=== PATIENT | female | born 1965 | race Caucasian/White ===

== ENCOUNTER 2016-11-11 18:13 | Emergency (ER) | payer MEDICAID ==
--- NOTE | 2016-11-11 18:21 | ER Document Report ---
ED Medical Screen (RME) - General Stated Complaint: LEFT LEG PAIN Mode of Arrival: Wheelchair Information source: Patient Notes: c/o of left buttock pain that radiates down to her left leg that started 2 weeks ago. It improved but then has returned and worsened today. She has is on 600 mg of gabapentin TID and has tried ibuprofen which has not provided relief. Endorses numbness in left foot but denies any unilateral weakness, bowel/ bladder incontinence, saddle paresthesias. I have greeted and performed a rapid initial assessment of this patient. A comprehensive ED assessment and evaluation of the patient, analysis of test results and completion of the medical decision making process will be conducted by additional ED providers. TRAVEL OUTSIDE OF THE [place] IN LAST 30 DAYS: No COUNTRY TRAVELED TO/FROM: [facility] - Related Data Allergies/Adverse Reactions: hydrocodone bitartrate [From Vicodin] Allergy (Verified 03/06/16 11:52) morphine [Morphine] Allergy (Verified 03/06/16 11:52) Past Medical History - Past Medical History Cardiac Medical History: Reports: Hx Hypertension Renal/ Medical History: Reports: Hx Kidney Stones GI Medical History: Reports: Hx Crohn's Disease, Hx Hepatitis Musculoskeltal Medical History: Reports Hx Arthritis Psychiatric Medical History: Reports: Hx Bipolar Disorder - Ptsd, Hx Depression Infectious Medical History: Reports: Hx Hepatitis Past Surgical History: Reports: Hx Orthopedic Surgery - rotator cuff, HIP SURGERY, Hx Tubal Ligation - Immunizations Hx Diphtheria, Pertussis, Tetanus Vaccination: Yes Physical Exam - Vital signs Vitals: Temp Pulse Resp BP Pulse Ox 98.0 F 81 16 139/83 H 97 11/11/16 18:16 11/11/16 18:16 11/11/16 18:16 11/11/16 18:16 11/11/16 18:16 Course - Vital Signs Vital signs: Temp Pulse Resp BP Pulse Ox 98.0 F 81 16 139/83 H 97 11/11/16 18:16 11/11/16 18:16 11/11/16 18:16 11/11/16 18:16 11/11/16 18:16
[2016-11-11] MEDS ORDERED: PREDNISONE 20 MG TABLET PO ONE (20:40)
[2016-11-11] MEDS ORDERED: CARISOPRODOL 350 MG TABLET PO ONE (20:40)
--- NOTE | 2016-11-11 20:41 | ER Document Report ---
ED General - General Mode of Arrival: Wheelchair Information source: Patient TRAVEL OUTSIDE OF THE [place] IN LAST 30 DAYS: No COUNTRY TRAVELED TO/FROM: [facility] - [facility] Patient complains to provider of: Lower left back and leg pain Onset: Other - 2 weeks ago Associated symptoms: Other - see above <HAWA VIEYAR - Last Filed: 11/11/16 21:44> <GURINDER SIERRA - Last Filed: 11/11/16 22:45> - General Chief Complaint: Back Pain Stated Complaint: LEFT LEG PAIN Notes: 50 year old female with history of degenerative disc disease presents to the ED complaining of lower left back and posterior leg pain that started 2 weeks ago. Patient reports the pain eased off for a few days and then came back in the past few days. Patient reports difficulty walking or bearing weight on her left leg. Patient denies any dysuria. Patient is currently on ibuprofen and Gabapentin. (HAWA VIEYRA) - Related Data Allergies/Adverse Reactions: hydrocodone bitartrate [From Vicodin] Allergy (Verified 11/11/16 18:18) morphine [Morphine] Allergy (Verified 11/11/16 18:18) Past Medical History - General Information source: Patient - Social History Smoking Status: Current Every Day Smoker Chew tobacco use (# tins/day): No Frequency of alcohol use: None Drug Abuse: None Family History: Reviewed & Not Pertinent Patient has suicidal ideation: No Patient has homicidal ideation: No - Past Medical History Cardiac Medical History: Reports: Hx Hypertension Renal/ Medical History: Reports: Hx Kidney Stones. Denies: Hx Peritoneal Dialysis GI Medical History: Reports: Hx Crohn's Disease, Hx Hepatitis Musculoskeltal Medical History: Reports Hx Arthritis, Reports Other - Degenerative Disc Disease Psychiatric Medical History: Reports: Hx Bipolar Disorder - Ptsd, Hx Depression Infectious Medical History: Reports: Hx Hepatitis Past Surgical History: Reports: Hx Orthopedic Surgery - rotator cuff, HIP SURGERY, Hx Tubal Ligation - Immunizations Hx Diphtheria, Pertussis, Tetanus Vaccination: Yes <HAWA VIEYRA - Last Filed: 11/11/16 21:44> Review of Systems - Review of Systems Constitutional: No symptoms reported EENT: No symptoms reported Cardiovascular: No symptoms reported Respiratory: No symptoms reported Gastrointestinal: No symptoms reported Genitourinary: No symptoms reported. denies: Dysuria Female Genitourinary: No symptoms reported Musculoskeletal: See HPI, Back pain - lower left back, Other - posterior left leg pain Skin: No symptoms reported Hematologic/Lymphatic: No symptoms reported Neurological/Psychological: No symptoms reported -: Yes All other systems reviewed and negative <HAWA VIEYRA - Last Filed: 11/11/16 21:44> Physical Exam - General General appearance: Alert In distress: None - HEENT Head: Normocephalic, Atraumatic Eyes: Normal Extraocular movements intact: Yes Pupils: PERRL - Respiratory Respiratory status: No respiratory distress Breath sounds: Normal - Cardiovascular Rhythm: Regular Heart sounds: Normal auscultation - Abdominal Inspection: Normal - Back Back: Normal - Extremities General upper extremity: Normal inspection, Normal ROM General lower extremity: Normal inspection, Tender - tenderness to palpation over the left SI joint and buttock., Normal ROM, Normal strength - Neurological Neuro grossly intact: Yes Cognition: Normal Orientation: AAOx4 [place] Coma Scale Eye Opening: Spontaneous [place] Coma Scale Verbal: Oriented Marlin Coma Scale Motor: Obeys Commands Marlin Coma Scale Total: 15 Speech: Normal Motor strength normal: LLE, RLE Additional motor exam normals: Other - positive left straight leg raise Sensory: Normal - Psychological Associated symptoms: Normal affect, Normal mood - Skin Skin Temperature: Warm Skin Moisture: Dry Skin Color: Normal <HAWA VIEYRA - Last Filed: 11/11/16 21:44> Course <HAWA VIEYRA - Last Filed: 11/11/16 21:44> - Diagnostic Test Radiology reviewed: Reports reviewed <GURINDER SIERRA - Last Filed: 11/11/16 22:45> - Re-evaluation Re-evalutation: 11/11/16 Patient with no acute findings on x-ray. Neurologically intact. Symptoms consistent with sciatica. Patient will be discharged home with pain medication and prednisone. Understands agrees with plan. Stable for discharge. Return if any worsening or concerning symptoms. No evidence for intraspinal pathology at this time. Follow-up with PMD. (GURINDER SIERRA) - Vital Signs Vital signs: Temp Pulse Resp BP Pulse Ox 98.0 F 81 16 139/83 H 97 11/11/16 18:16 11/11/16 18:16 11/11/16 18:16 11/11/16 18:16 11/11/16 18:16 Discharge <HAWA VIEYRA - Last Filed: 11/11/16 21:44> <GURINDER SIERRA - Last Filed: 11/11/16 22:45> - Discharge Clinical Impression: Sciatica Qualifiers: Laterality: left Qualified Code(s): M54.32 - Sciatica, left side Condition: Stable Disposition: HOME, SELF-CARE Instructions: Low Back Pain ([facility]), Sciatica ([facility]), Family Physicians / Practices Prescriptions: Oxycodone HCl/Acetaminophen [Percocet 5-325 mg Tablet] 1 - 2 tab PO Q4H PRN #20 tablet PRN Reason: Prednisone 40 mg PO DAILY #6 tablet Scribe Attestation: 11/11/16 22:45 I personally performed the services described in the documentation, reviewed and edited the documentation which was dictated to the scribe in my presence, and it accurately records my words and actions. (GURINDER SIERRA) Scribe Documentation - Scribe Written by Nia:: Nia Plummer, 11/11/2016, 2116 acting as scribe for :: Amos <HAWA VIEYRA - Last Filed: 11/11/16 21:44>
[2016-11-11] MEDS ORDERED: OXYCODONE-ACETAMINOPHEN 5-325 MG TABLET PO ONE (22:00)
[2016-11-11 23:52] VITALS: BP 129/74
== END 2016-11-11 22:09 | disposition home or self-care (01) ==
LOC: ER 18:13
DX: M54.42 Lumbago with sciatica, left side (principal); I10 Essential (primary) hypertension; F17.200 Nicotine dependence, unspecified, uncomplicated; Z79.899 Other long term (current) drug therapy; Z79.1 Long term (current) use of non-steroidal anti-inflammatories (NSAID); Z88.5 Allergy status to narcotic agent
CPT/HCPCS: 99283; 72110; J3490; J7512

== ENCOUNTER → 2016-12-28 | Outpatient (CLI) | payer MEDICAID | LOC: WI 11:03 | PROVIDERS: ATTEND Family Medicine | DX: Z12.31 Encounter for screening mammogram for malignant neoplasm of breast (principal); N63 Unspecified lump in breast | CPT/HCPCS: 77067; G0202 ==

== ENCOUNTER 2017-02-02 10:53 | Emergency (ER) | payer MEDICAID ==
--- NOTE | 2017-02-02 11:10 | ER Document Report ---
ED Medical Screen (RME) - General Chief Complaint: High Blood Pressure Stated Complaint: BLOOD PRESSURE ISSUES Time Seen by Provider: 02/02/17 11:07 Notes: Patient says that she has been experiencing dizziness over the past week. It is worse when she stands up. She has hypertension and it has caused her to have episodes like this in the past. She has been out of her blood pressure medicines for several days and does not have an appointment see her primary care provider until Tuesday. Patient says that she is seeing spots in front of both eyes and also experiencing a generalized headache. Has not passed out and has no neurologic symptoms or deficits. Has not been ill this past week or so. Denies any fevers. Denies abdominal pains, chest pains, or difficulty breathing or shortness of breath. Denies any history of any heart disease. Not diabetic. PMH: Bipolar disorder, depression, PTSD, hypertension, ulcers. Patient volunteers that she did some cocaine last night. TRAVEL OUTSIDE OF THE [place] IN LAST 30 DAYS: No COUNTRY TRAVELED TO/FROM: [facility] - Related Data Allergies/Adverse Reactions: hydrocodone bitartrate [From Vicodin] Allergy (Verified 02/02/17 10:56) morphine [Morphine] Allergy (Verified 02/02/17 10:56) Past Medical History - Past Medical History Cardiac Medical History: Reports: Hx Hypertension Renal/ Medical History: Reports: Hx Kidney Stones. Denies: Hx Peritoneal Dialysis GI Medical History: Reports: Hx Crohn's Disease, Hx Hepatitis Musculoskeltal Medical History: Reports Hx Arthritis Psychiatric Medical History: Reports: Hx Bipolar Disorder - Ptsd, Hx Depression Infectious Medical History: Reports: Hx Hepatitis Past Surgical History: Reports: Hx Orthopedic Surgery - rotator cuff, HIP SURGERY, Hx Tubal Ligation - Immunizations Hx Diphtheria, Pertussis, Tetanus Vaccination: Yes Physical Exam - Vital signs Vitals: Temp Pulse Resp BP Pulse Ox 98.1 F 78 16 178/90 H 96 02/02/17 10:57 02/02/17 10:57 02/02/17 10:57 02/02/17 10:57 02/02/17 10:57 Course - Vital Signs Vital signs: Temp Pulse Resp BP Pulse Ox 98.1 F 78 16 178/90 H 96 02/02/17 10:57 02/02/17 10:57 02/02/17 10:57 02/02/17 10:57 02/02/17 10:57
--- NOTE | 2017-02-02 12:00 | ER Document Report ---
ED Blood Pressure Problem - General Mode of Arrival: Ambulatory Information source: Patient TRAVEL OUTSIDE OF THE [place] IN LAST 30 DAYS: No COUNTRY TRAVELED TO/FROM: [facility] - [facility] Patient complains to provider of: High blood pressure Quality of pain: Achy Problem is: Chronic problem Pt currently taking medication for problem: Yes - prescribed meds, currently out Associated symptoms: Headache Similar symptoms previously: Yes <ADWOA RIGGS - Last Filed: 02/02/17 12:47> <GURINDER SIERRA - Last Filed: 02/02/17 17:13> - General Chief Complaint: High Blood Pressure Stated Complaint: BLOOD PRESSURE ISSUES Time Seen by Provider: 02/02/17 11:07 Notes: Patient is a 51-year-old female that presents to the emergency department today with complaints of dizziness, headache, and elevated blood pressures over the last week. Patient states she has been out of her blood pressure medications "for the last few days". Patient also adds that she "did a little bit of cocaine last night". Patient states "they said it would help me, that it would make me numb". Patient is supposed to be taking HCTZ 25 mg, lisinopril 20 mg, atenolol 100 mg daily. Patient states she recently switched doctors, she had her initial blood work done already and she has an appointment this week for med refills. (ADWOA RIGGS) - Related Data Allergies/Adverse Reactions: hydrocodone bitartrate [From Vicodin] Allergy (Verified 02/02/17 10:56) morphine [Morphine] Allergy (Verified 02/02/17 10:56) Past Medical History - General Information source: Patient, [facility] Records - Social History Smoking Status: Current Every Day Smoker Cigarette use (# per day): Yes Drug Abuse: Cocaine - used last night Family History: Reviewed & Not Pertinent Patient has suicidal ideation: No Patient has homicidal ideation: No - Past Medical History Cardiac Medical History: Reports: Hx Hypertension Renal/ Medical History: Reports: Hx Kidney Stones GI Medical History: Reports: Hx Crohn's Disease, Hx Hepatitis Musculoskeltal Medical History: Reports Hx Arthritis Psychiatric Medical History: Reports: Hx Bipolar Disorder - Ptsd, Hx Depression Infectious Medical History: Reports: Hx Hepatitis Past Surgical History: Reports: Hx Orthopedic Surgery - rotator cuff, HIP SURGERY, Hx Tubal Ligation - Immunizations Hx Diphtheria, Pertussis, Tetanus Vaccination: Yes <ADWOA RIGGS - Last Filed: 02/02/17 12:47> Review of Systems - Review of Systems Constitutional: No symptoms reported EENT: No symptoms reported Cardiovascular: See HPI, Dizziness Respiratory: No symptoms reported Gastrointestinal: No symptoms reported Genitourinary: No symptoms reported Female Genitourinary: No symptoms reported Musculoskeletal: No symptoms reported Skin: No symptoms reported Hematologic/Lymphatic: No symptoms reported Neurological/Psychological: See HPI, Headaches -: Yes All other systems reviewed and negative <ADWOA RIGGS - Last Filed: 02/02/17 12:47> Physical Exam - Vital signs Interpretation: Hypertensive - General General appearance: Appears well, Alert - HEENT Head: Normocephalic, Atraumatic Eyes: Normal Pupils: PERRL - Respiratory Respiratory status: No respiratory distress Chest status: Nontender Breath sounds: Normal Chest palpation: Normal - Cardiovascular Rhythm: Regular Heart sounds: Normal auscultation Murmur: No - Abdominal Inspection: Normal Distension: No distension Bowel sounds: Normal Tenderness: Nontender Organomegaly: No organomegaly - Back Back: Normal, Nontender - Extremities General upper extremity: Normal inspection, Nontender, Normal color, Normal ROM , Normal temperature General lower extremity: Normal inspection, Nontender, Normal color, Normal ROM , Normal temperature, Normal weight bearing. No: Neo's sign - Neurological Neuro grossly intact: Yes Cognition: Normal Orientation: AAOx4 [place] Coma Scale Eye Opening: Spontaneous [place] Coma Scale Verbal: Oriented [place] Coma Scale Motor: Obeys Commands [place] Coma Scale Total: 15 Speech: Normal Motor strength normal: LUE, RUE, LLE, RLE Sensory: Normal - Psychological Associated symptoms: Normal affect, Normal mood - Skin Skin Temperature: Warm Skin Moisture: Dry Skin Color: Normal <GURINDER SIERRA - Last Filed: 02/02/17 17:13> - Vital signs Vitals: Temp Pulse Resp BP Pulse Ox 98.1 F 78 16 178/90 H 96 02/02/17 10:57 02/02/17 10:57 02/02/17 10:57 02/02/17 10:57 02/02/17 10:57 Course - Laboratory Result Diagrams: 02/02/17 11:30 02/02/17 11:30 <ADWOA RIGGS - Last Filed: 02/02/17 12:47> - Laboratory Result Diagrams: 02/02/17 11:30 02/02/17 11:30 - Diagnostic Test Radiology reviewed: Reports reviewed - EKG Interpretation by Me EKG shows normal: Sinus rhythm Rate: Normal Rhythm: NSR <GURINDER SIERRA - Last Filed: 02/02/17 17:13> - Re-evaluation Re-evalutation: 02/02/17 Patient is a 51-year-old female who comes in with a headache. Patient has been out of her blood pressure medication. Patient also admits to cocaine abuse yesterday which states did not help her headache. Blood work and head CT are within normal limits. Blood pressure is not severely elevated here. Patient's headache is resolved after medications. She will be given a refill of her blood pressure medication and has an appointment to see her new primary on Tuesday. Stable for discharge. Return if any worsening or concerning symptoms. (GURINDER SIERRA) - Vital Signs Vital signs: Temp Pulse Resp BP Pulse Ox 98.0 F 78 15 109/68 95 02/02/17 15:12 02/02/17 10:57 02/02/17 15:12 02/02/17 15:12 02/02/17 15:12 - Laboratory Laboratory results interpreted by me: 02/02/17 02/02/17 11:30 11:30 Hct 35.0 L BUN 22 H Est GFR (Non-Af Amer) 52 L Calcium 10.4 H AST 38 H ALT 59 H Total Protein 8.7 H Discharge <ADWOA RIGGS - Last Filed: 02/02/17 12:47> <GURINDER SIERRA - Last Filed: 02/02/17 17:13> - Discharge Clinical Impression: Cocaine use Headache Qualifiers: Headache type: unspecified Headache chronicity pattern: acute headache Intractability: not intractable Qualified Code(s): R51 - Headache High blood pressure Qualifiers: Hypertension type: essential hypertension Qualified Code(s): I10 - Essential ( primary) hypertension Condition: Stable Disposition: HOME, SELF-CARE Instructions: Headache ([facility]), High Blood Pressure ([facility]) Prescriptions: Lisinopril 20 mg PO QHS #30 tablet Atenolol [Tenormin 100 mg Tablet] 100 mg PO DAILY #30 tablet Hydrochlorothiazide 25 mg PO DAILY #30 tablet Forms: Return to Work Referrals: JENNA VIEYRA MD [Primary Care Provider] - Follow up in 3-5 days Scribe Attestation: 02/02/17 17:13 I personally performed the services described in the documentation, reviewed and edited the documentation which was dictated to the scribe in my presence, and it accurately records my words and actions. (GURINDER SIERRA) Scribe Documentation - Scribe Written by Brentone:: Nia Velásquez, 02/02/2017 1246 acting as scribe for :: Amos <ADWOA RIGGS - Last Filed: 02/02/17 12:47>
[2017-02-02] MEDS ORDERED: PROCHLORPERAZINE EDISYLATE INJ 10 MG/2 ML VIAL IV ONE (12:15)
[2017-02-02] MEDS ORDERED: DIPHENHYDRAMINE HCL 50 MG/ML VIAL IV ONE (12:15)
[2017-02-02] MEDS ORDERED: ONDANSETRON HCL INJ/PF 4 MG/2 ML SDV IV ONE (12:15)
[2017-02-02] MEDS ORDERED: NORMAL SALINE 500 ML IV ONE (12:15)
[2017-02-02 12:17] LABS: ABSOLUTE EOSINOPHILS # (AUTO) 0.1 10^3/uL (0.0-0.6); ABSOLUTE LYMPHOCYTES (AUTO) 2.7 10^3/uL (0.5-4.7); ABSOLUTE MONOCYTES (AUTO) 0.5 10^3/uL (0.1-1.4); ABSOLUTE NEUT (AUTO) 6.4 10^3/uL (1.7-8.2); BASOPHILS % (AUTO) 0.3 % (0-2); EOSINOPHILS % (AUTO) 0.8 % (0-6); LYMPHOCYTES % (AUTO) 27.5 % (13-45); MEAN CORPUSCULAR HGB CONC 34.3 g/dL (32.0-36.0); MEAN CORPUSCULAR VOLUME 88 fl (80-97); MONOCYTES % (AUTO) 5.2 % (3-13); RED CELL DISTRIBUTION WIDTH 12.8 % (11.5-14.0); SEGMENTED NEUTROPHILS % (AUTO) 66.2 % (42-78); WHITE BLOOD COUNT 9.7 10^3/uL (4.0-10.5)
[2017-02-02 12:38] LABS: ALANINE AMINOTRANSFERASE 59 U/L (9-52); ALBUMIN 4.9 g/dL (3.5-5.0); ALKALINE PHOSPHATASE 90 U/L (38-126); ANION GAP 15 (5-19); ASPARTATE AMINO TRANSFERASE 38 U/L (14-36); BILIRUBIN,DIRECT 0.3 mg/dL (0.0-0.4); BILIRUBIN,TOTAL 0.4 mg/dL (0.2-1.3); BLOOD UREA NITROGEN 22 mg/dL (7-20); CALCIUM 10.4 mg/dL (8.4-10.2); CARBON DIOXIDE 27 mmol/L (22-30); CHLORIDE 103 mmol/L (98-107); GLUCOSE 102 mg/dL (75-110); POTASSIUM 4.1 mmol/L (3.6-5.0); SODIUM 144.7 mmol/L (137-145); TOTAL PROTEIN 8.7 g/dL (6.3-8.2)
[2017-02-02 12:44] LABS: CREATINE KINASE MB 1.37 ng/mL (<4.55)
[2017-02-02 12:45] LABS: TROPONIN I < 0.012 ng/mL
--- NOTE | 2017-02-02 12:49 | RADIOLOGY REPORT (SQ) ---
EXAM DESCRIPTION: CT HEAD WITHOUT COMPLETED DATE/TIME: 02/02/2017 12:35 pm REASON FOR STUDY: headache COMPARISON: None. TECHNIQUE: Axial images acquired through the brain without intravenous contrast. Images reviewed wi th bone, brain and subdural windows. Images stored on PACS. All CT scanners at this facility use dose modulation, iterative reconstruction, and/or weight based d osing when appropriate to reduce radiation dose to as low as reasonably achievable (ALARA). [facility]: Dose Right [facility]: CareDose [facility]: Dose Right [facility]: Teradose 4D [facility]: Couchbase RADIATION DOSE: 64.61 mGy. LIMITATIONS: None. FINDINGS: VENTRICLES: Normal size and contour. CEREBRUM: No masses. No hemorrhage. No midline shift. Normal larkin/white matter differentiation. N o evidence for acute infarction. CEREBELLUM: No masses. No hemorrhage. No alteration of density. No evidence for acute infarction. EXTRAAXIAL SPACES: No fluid collections. No masses. ORBITS AND GLOBE: No intra- or extraconal masses. Normal contour of globe without masses. CALVARIUM: No fracture. PARANASAL SINUSES: No fluid or mucosal thickening. SOFT TISSUES: No mass or hematoma. OTHER: No other significant finding. IMPRESSION: NORMAL BRAIN CT WITHOUT CONTRAST. TECHNICAL DOCUMENTATION: JOB ID: [id number] Quality ID # [id number]: Final reports with documentation of one or more dose reduction techniques (e.g., Au tomated exposure control, adjustment of the mA and/or kV according to patient size, use of iterative reconstruction technique) 2010 [employer]- All Rights Reserved
--- NOTE | 2017-02-02 13:28 | EKG REPORT ---
SEVERITY:- ABNORMAL ECG - SINUS RHYTHM CONSIDER LEFT VENTRICULAR HYPERTROPHY : Confirmed by: David Martinez MD 02-Feb-2017 13:28:00
[2017-02-02 15:14] VITALS: BP 109/68
== END 2017-02-02 15:12 | disposition home or self-care (01) ==
LOC: ER 10:53
DX: R51 Headache (principal); I10 Essential (primary) hypertension; F14.90 Cocaine use, unspecified, uncomplicated; R42 Dizziness and giddiness; Z79.899 Other long term (current) drug therapy; F17.210 Nicotine dependence, cigarettes, uncomplicated
CPT/HCPCS: 93005; 99284; 96374; 96375; 36415; 82553; 85025; 80053; 84484; 70450; 93010; J1200; J0780; J2405; J7040

== ENCOUNTER → 2017-06-03 | Outpatient (CLI) | payer MEDICAID ==
--- NOTE | 2017-06-03 11:43 | WOMENS IMAGING REPORT ---
EXAM DESCRIPTION: RIGHT DIAGNOSTIC MAMMO W/CAD COMPLETED DATE/TIME: 06/03/2017 11:33 am REASON FOR STUDY: RT BREAST N63 N63 UNSPECIFIED LUMP IN BREAST COMPARISON: Screening mammograms 12/28/2016 Bilateral mammograms 09/29/2010 TECHNIQUE: Cone compression craniocaudal and mediolateral oblique images of the breast recorded with digital acquisition. Right breast 90 mediolateral view, right breast MLO and right breast CC view were also obtained. LIMITATIONS: None. FINDINGS: BREAST: Right MASSES: No suspicious masses. The area of concern identified on 12/28/2016 represents superimposed sh adows on today's study. No persistent masses identified. CALCIFICATIONS: No new or suspicious calcifications. ARCHITECTURAL DISTORTION: None. DEVELOPING DENSITY: None. ASYMMETRY: None noted. OTHER: No other significant findings. Read with the assistance of CAD. .[facility] - R2 Cenova Version 1.3 .[facility] Imaging - R2 Cenova Version 1.3 .[facility] - R2 Cenova Version 2.4 .[facility] - R2 Cenova Version 2.4 .[facility] - R2 Cryptographic Technician Version 9.2 IMPRESSION: No mammographic evidence for malignancy right breast BREAST DENSITY: b. There are scattered areas of fibroglandular density. BIRAD: 1 Negative. RECOMMENDATION: RECOMMENDED FOLLOW UP: Please continue yearly bilateral screening in December 2017. Co nsider bilateral screening tomosynthesis. SPECIFIC INTERVENTION/IMAGING/CONSULTATION RECOMMENDED:No additional intervention/ imaging/consultati on needed at this time. COMMUNICATION:Patient notified by letter COMMENT: The patient has been notified of the results by letter per [place] requirements. Additional no tification policies are in place for contacting patient with suspicious or incomplete findings. Quality ID #[id number]: The [employer] recommends an annual screening mammogram for women aged 40 years or over. This facility utilizes a reminder system to ensure that all patients receive reminder letters, and/or direct phone calls for appointments. This includes reminders for routine scr eening mammograms, diagnostic mammograms, or other Breast Imaging Interventions when appropriate. Th is patient will be placed in the appropriate reminder system. The [employer] (ACR) has developed recommendations for screening MRI of the breast s in certain patient populations, to be used in conjunction with mammography. Breast MRI surveillanc e may be appropriate for women with more than 20% lifetime risk of developing breast cancer as deter mined by genetic testing, significant family history of the disease, or history of mantle radiation f or Hodgkins Disease. ACR Practice Guidelines 2008. TECHNICAL DOCUMENTATION: FINDING NUMBER: (1) ASSESSMENT: (1) JOB ID: [id number] [employer]- All Rights Reserved
== END ==
LOC: WI 11:14
PROVIDERS: ATTEND Family Medicine
DX: N63 Unspecified lump in breast (principal)
CPT/HCPCS: G0206-52

== ENCOUNTER → 2018-01-18 | Outpatient (CLI) | payer MEDICAID ==
[2018-01-18 12:04] LABS: ABSOLUTE BASOPHILS # (AUTO) 0.1 10^3/uL (0.0-0.2); ABSOLUTE EOSINOPHILS # (AUTO) 0.2 10^3/uL (0.0-0.6); ABSOLUTE LYMPHOCYTES (AUTO) 3.6 10^3/uL (0.5-4.7); ABSOLUTE MONOCYTES (AUTO) 0.3 10^3/uL (0.1-1.4); ABSOLUTE NEUT (AUTO) 7.2 10^3/uL (1.7-8.2); BASOPHILS % (AUTO) 0.6 % (0-2); EOSINOPHILS % (AUTO) 1.4 % (0-6); HEMATOCRIT 42.8 % (36.0-47.0); HEMOGLOBIN 14.5 g/dL (12.0-15.5); MEAN CORPUSCULAR HEMOGLOBIN 31.1 pg (27.0-33.4); MEAN CORPUSCULAR HGB CONC 33.9 g/dL (32.0-36.0); MEAN CORPUSCULAR VOLUME 92 fl (80-97); MONOCYTES % (AUTO) 2.9 % (3-13); RED BLOOD COUNT 4.67 10^6/uL (3.72-5.28); RED CELL DISTRIBUTION WIDTH 13.2 % (11.5-14.0); SEGMENTED NEUTROPHILS % (AUTO) 63.1 % (42-78); TOTAL CELLS COUNTED % (AUTO) 100 %; WHITE BLOOD COUNT 11.4 10^3/uL (4.0-10.5)
[2018-01-18 12:21] LABS: ALANINE AMINOTRANSFERASE 88 U/L (9-52); ALBUMIN 4.7 g/dL (3.5-5.0); ALKALINE PHOSPHATASE 80 U/L (38-126); ANION GAP 12 (5-19); ASPARTATE AMINO TRANSFERASE 58 U/L (14-36); BILIRUBIN,DIRECT 0.4 mg/dL (0.0-0.4); BILIRUBIN,TOTAL 0.4 mg/dL (0.2-1.3); BLOOD UREA NITROGEN 14 mg/dL (7-20); CALCIUM 9.8 mg/dL (8.4-10.2); CARBON DIOXIDE 25 mmol/L (22-30); CHLORIDE 106 mmol/L (98-107); CHOLESTEROL 204.59 mg/dL (0-200); CREATINE KINASE 41 U/L (30-135); GAMMA-GLUTAMYL TRANSFERASE 29 U/L (8-78); GLUCOSE 107 mg/dL (75-110); POTASSIUM 3.9 mmol/L (3.6-5.0); TOTAL PROTEIN 8.7 g/dL (6.3-8.2); TRIGLYCERIDES 141 mg/dL (<150)
[2018-01-18 12:25] LABS: PLATELET COUNT 167 10^3/uL (150-450)
[2018-01-18 12:41] LABS: DIRECT LDL 129 mg/dL (<100)
[2018-01-18 13:47] LABS: CHLAM PCR NOT DETECTED (NOT DETECT); GON PCR NOT DETECTED (NOT DETECT)
[2018-01-18 14:57] LABS: RAPID PLASMA REAGIN REACTIVE 1:1 (NONREACTIVE)
[2018-01-19 12:39] LABS: CREATININE URINE 112.2 mg/dL (Not Estab.); MICROALBUMIN URINE 10.1 ug/mL (Not Estab.)
== END ==
LOC: LAB 11:09
PROVIDERS: ATTEND Family Medicine
DX: Z00.00 Encounter for general adult medical examination without abnormal findings (principal); Z11.59 Encounter for screening for other viral diseases; R73.9 Hyperglycemia, unspecified; I10 Essential (primary) hypertension; E55.9 Vitamin D deficiency, unspecified; E78.2 Mixed hyperlipidemia; B18.2 Chronic viral hepatitis C
CPT/HCPCS: 36415; 80053; 80061; 82043; 82306; 82550; 82570; 82607; 82977; 83735; 84443; 85025; 86592; 86701; 87491; 87522; 87591

== ENCOUNTER → 2018-06-21 | Outpatient (CLI) | payer MEDICAID ==
[2018-06-21 15:04] LABS: ABSOLUTE EOSINOPHILS # (AUTO) 0.1 10^3/uL (0.0-0.6); ABSOLUTE LYMPHOCYTES (AUTO) 2.1 10^3/uL (0.5-4.7); ABSOLUTE MONOCYTES (AUTO) 0.4 10^3/uL (0.1-1.4); ABSOLUTE NEUT (AUTO) 3.3 10^3/uL (1.7-8.2); BASOPHILS % (AUTO) 0.7 % (0-2); EOSINOPHILS % (AUTO) 2.2 % (0-6); HEMATOCRIT 37.2 % (36.0-47.0); HEMOGLOBIN 12.7 g/dL (12.0-15.5); MEAN CORPUSCULAR HEMOGLOBIN 30.3 pg (27.0-33.4); MEAN CORPUSCULAR HGB CONC 34.2 g/dL (32.0-36.0); MEAN CORPUSCULAR VOLUME 89 fl (80-97); MONOCYTES % (AUTO) 6.7 % (3-13); PLATELET COUNT 189 10^3/uL (150-450); RED CELL DISTRIBUTION WIDTH 13.5 % (11.5-14.0); SEGMENTED NEUTROPHILS % (AUTO) 55.4 % (42-78); TOTAL CELLS COUNTED % (AUTO) 100 %; WHITE BLOOD COUNT 5.9 10^3/uL (4.0-10.5)
[2018-06-21 15:10] LABS: APPEARANCE,URINE CLEAR; BILIRUBIN,URINE NEGATIVE (NEGATIVE); GLUCOSE, URINE NEGATIVE (NEGATIVE); KETONES,URINE NEGATIVE (NEGATIVE); NITRITE,URINE NEGATIVE (NEGATIVE); PROTEIN,URINE NEGATIVE (NEGATIVE); URINE SPECIFIC GRAVITY 1.019; UROBILINOGEN,URINE NEGATIVE mg/dL (<2.0)
[2018-06-21 15:11] LABS: ADD MANUAL MICROSCOPIC YES; COLOR,URINE YELLOW; LEUKOCYTE ESTERASE,URINE NEGATIVE (NEGATIVE); RBC,URINE 0-1 /HPF
[2018-06-21 15:23] LABS: ALANINE AMINOTRANSFERASE 48 U/L (9-52); ALBUMIN 4.1 g/dL (3.5-5.0); ALKALINE PHOSPHATASE 85 U/L (38-126); ANION GAP 7 (5-19); ASPARTATE AMINO TRANSFERASE 42 U/L (14-36); BILIRUBIN,DIRECT 0.3 mg/dL (0.0-0.4); BILIRUBIN,TOTAL 0.4 mg/dL (0.2-1.3); BLOOD UREA NITROGEN 13 mg/dL (7-20); CALCIUM 9.4 mg/dL (8.4-10.2); CARBON DIOXIDE 22 mmol/L (22-30); CHLORIDE 109 mmol/L (98-107); CHOLESTEROL 198.34 mg/dL (0-200); CREATINE KINASE 51 U/L (30-135); GAMMA-GLUTAMYL TRANSFERASE 32 U/L (8-78); GLUCOSE 96 mg/dL (75-110); POTASSIUM 4.4 mmol/L (3.6-5.0); SODIUM 138.1 mmol/L (137-145); TOTAL PROTEIN 7.9 g/dL (6.3-8.2); TRIGLYCERIDES 248 mg/dL (<150)
[2018-06-21 15:34] LABS: DIRECT LDL 112 mg/dL (<100)
[2018-06-21 16:16] LABS: VLDL CHOLESTEROL 49.6 mg/dL (10-31)
[2018-06-22 12:38] LABS: CREATININE URINE 93.8 mg/dL (Not Estab.)
[2018-06-22 14:16] LABS: MICROALBUMIN URINE <3.0 ug/mL (Not Estab.)
== END ==
LOC: LAB 14:17
PROVIDERS: ATTEND Family Medicine
DX: Z00.00 Encounter for general adult medical examination without abnormal findings (principal); R73.9 Hyperglycemia, unspecified; I10 Essential (primary) hypertension; E78.2 Mixed hyperlipidemia; E55.9 Vitamin D deficiency, unspecified
CPT/HCPCS: 36415; 80053; 80061; 81001; 82043; 82306; 82550; 82570; 82607; 82977; 83036; 83525; 83735; 84443; 85025

== ENCOUNTER → 2018-07-18 | Outpatient (CLI) | payer MEDICAID ==
--- NOTE | 2018-07-18 14:31 | WOMENS IMAGING REPORT ---
EXAM DESCRIPTION: BONE DENSITY HIP/SPINE COMPLETED DATE/TIME: 07/18/2018 2:23 pm REASON FOR STUDY: BONE DENISTY TEST/Z13.820 Z13.820 ENCOUNTER FOR SCREENING FOR OSTEOPOROSIS Z12.31 ENCNTR SCREEN MAMMOGRAM FOR MALIGNANT NEOPLASM OF KWAME COMPARISON: None. TECHNIQUE: Dual-Energy X-ray Absorptiometry (DEXA) of the AP Spine and Hip. LIMITATIONS: None. FINDINGS: LUMBAR SPINE: The bone mineral density (BMD) measured from L1-L4 in the AP projection correlates with a T-score of 0.4, which is normal as defined by the World Health Organization. HIP: The bone mineral density (BMD) measured in the left hip correlates with a T-score of -1.4, which is o steopenia as defined by the World Health Organization. IMPRESSION: 1. LUMBAR SPINE: NORMAL. 2. HIP: OSTEOPENIA. COMMENT: The World Health Organization defines low BMD as follows: T-score: Normal: Greater than -1.0 Osteopenia: Between -1.0 and -2.5 Osteoporosis: Less than -2.5 without fractures Established osteoporosis: Less than -2.5 with fractures In general, you may wish to consider: Diagnosis Treatment Follow-up DEXA Normal BMD Prevention 2-3 years Osteopenia Prevention/Therapy 1-2 years Osteoporosis Therapy Yearly TECHNICAL DOCUMENTATION: JOB ID: [id number]- All Rights Reserved Reading location - IP/workstation name: [email or web address]
--- NOTE | 2018-07-18 14:34 | WOMENS IMAGING REPORT ---
EXAM DESCRIPTION: BILAT SCREENING MAMMO W/CAD COMPLETED DATE/TIME: 07/18/2018 2:23 pm REASON FOR STUDY: BILATERAL SCREENING MAMMO/Z12.31 Z13.820 ENCOUNTER FOR SCREENING FOR OSTEOPOROSIS Z12.31 ENCNTR SCREEN MAMMOGRAM FOR MALIGNANT NEOPLASM OF K[place] COMPARISON: 2010, 2016 TECHNIQUE: Standard craniocaudal and mediolateral oblique views of each breast recorded using digita l acquisition. LIMITATIONS: None. FINDINGS: No masses, calcifications or architectural distortion. No areas of suspicion. Read with the assistance of CAD. .[facility] - R2 Cenova Version 1.3 .[facility] - R2 Cenova Version 1.3 .[facility] - R2 Cenova Version 2.4 .[facility] - R2 Cenova Version 2.4 .[facility] - R2 Dramatic Director Version 9.2 IMPRESSION: NORMAL MAMMOGRAM. BIRADS 1. BREAST DENSITY: b. There are scattered areas of fibroglandular density. BIRAD: 1 NEGATIVE RECOMMENDATION: ROUTINE SCREENING COMMENT: The patient has been notified of the results by letter per MQSA requirements. Additional no tification policies are in place for contacting patient with suspicious or incomplete findings. Quality ID #[id number]: The [employer] recommends an annual screening mammogram for women aged 40 years or over. This facility utilizes a reminder system to ensure that all patients receive reminder letters, and/or direct phone calls for appointments. This includes reminders for routine scr eening mammograms, diagnostic mammograms, or other Breast Imaging Interventions when appropriate. Th is patient will be placed in the appropriate reminder system. The [employer] (ACR) has developed recommendations for screening MRI of the breast s in certain patient populations, to be used in conjunction with mammography. Breast MRI surveillanc e may be appropriate for women with more than 20% lifetime risk of developing breast cancer as deter mined by genetic testing, significant family history of the disease, or history of mantle radiation f or Hodgkins Disease. ACR Practice Guidelines 2008. TECHNICAL DOCUMENTATION: FINDING NUMBER: (1) ASSESSMENT: (1) JOB ID: [id number] [employer]- All Rights Reserved Reading location - IP/workstation name: [email or web address]
== END ==
LOC: WI 13:37
PROVIDERS: ATTEND Family Medicine
DX: Z12.31 Encounter for screening mammogram for malignant neoplasm of breast (principal); Z13.820 Encounter for screening for osteoporosis; M85.88 Other specified disorders of bone density and structure, other site
CPT/HCPCS: 77067; 77080

== ENCOUNTER → 2019-01-05 | Outpatient (CLI) | payer MEDICAID ==
[2019-01-05 12:25] LABS: ABSOLUTE EOSINOPHILS # (AUTO) 0.1 10^3/uL (0.0-0.6); ABSOLUTE LYMPHOCYTES (AUTO) 1.6 10^3/uL (0.5-4.7); ABSOLUTE MONOCYTES (AUTO) 0.3 10^3/uL (0.1-1.4); ABSOLUTE NEUT (AUTO) 2.7 10^3/uL (1.7-8.2); BASOPHILS % (AUTO) 0.7 % (0-2); EOSINOPHILS % (AUTO) 2.4 % (0-6); HEMATOCRIT 37.1 % (36.0-47.0); HEMOGLOBIN 12.7 g/dL (12.0-15.5); LYMPHOCYTES % (AUTO) 33.1 % (13-45); MEAN CORPUSCULAR HGB CONC 34.2 g/dL (32.0-36.0); MEAN CORPUSCULAR VOLUME 90 fl (80-97); MONOCYTES % (AUTO) 6.4 % (3-13); PLATELET COUNT 113 10^3/uL (150-450); RED CELL DISTRIBUTION WIDTH 13.4 % (11.5-14.0); SEGMENTED NEUTROPHILS % (AUTO) 57.4 % (42-78); TOTAL CELLS COUNTED % (AUTO) 100 %; WHITE BLOOD COUNT 4.7 10^3/uL (4.0-10.5)
[2019-01-05 12:32] LABS: APPEARANCE,URINE SLIGHTLY-CLOUDY; BILIRUBIN,URINE NEGATIVE (NEGATIVE); COLOR,URINE YELLOW; GLUCOSE, URINE NEGATIVE (NEGATIVE); KETONES,URINE NEGATIVE (NEGATIVE); LEUKOCYTE ESTERASE,URINE TRACE (NEGATIVE); NITRITE,URINE NEGATIVE (NEGATIVE); PROTEIN,URINE NEGATIVE (NEGATIVE); URINE SPECIFIC GRAVITY 1.019
[2019-01-05 12:52] LABS: ALANINE AMINOTRANSFERASE 26 U/L (9-52); ALKALINE PHOSPHATASE 74 U/L (38-126); ANION GAP 12 (5-19); ASPARTATE AMINO TRANSFERASE 30 U/L (14-36); BILIRUBIN,DIRECT 0.4 mg/dL (0.0-0.4); BILIRUBIN,TOTAL 0.6 mg/dL (0.2-1.3); BLOOD UREA NITROGEN 15 mg/dL (7-20); CALCIUM 9.4 mg/dL (8.4-10.2); CARBON DIOXIDE 26 mmol/L (22-30); CHLORIDE 101 mmol/L (98-107); CREATINE KINASE 42 U/L (30-135); GAMMA-GLUTAMYL TRANSFERASE 14 U/L (8-78); GLUCOSE 98 mg/dL (75-110); IRON(TIBC) 49.9 ug/dL (37-170); POTASSIUM 3.7 mmol/L (3.6-5.0); SODIUM 138.7 mmol/L (137-145); TOTAL PROTEIN 7.5 g/dL (6.3-8.2); TRIGLYCERIDES 108 mg/dL (<150)
[2019-01-05 13:03] LABS: DIRECT LDL 119 mg/dL (<100)
[2019-01-06 10:37] LABS: CREATININE URINE 136.5 mg/dL (Not Estab.); MICROALBUMIN URINE 5.6 ug/mL (Not Estab.)
== END ==
LOC: LAB 12:03
PROVIDERS: ATTEND Family Medicine
DX: I10 Essential (primary) hypertension (principal); E78.2 Mixed hyperlipidemia; E55.9 Vitamin D deficiency, unspecified; D50.9 Iron deficiency anemia, unspecified
CPT/HCPCS: 36415; 80053; 80061; 81001; 82043; 82306; 82550; 82570; 82728; 82977; 83540; 83550; 84466; 85025

== ENCOUNTER 2019-04-25 03:15 | Emergency (ER) | payer OTHER ==
[2019-04-25 03:27] VITALS: BP 137/87
== END 2019-04-25 04:46 | disposition left against medical advice (07) ==
LOC: ER 03:15
DX: Z53.21 Procedure and treatment not carried out due to patient leaving prior to being seen by health care provider (principal)

== ENCOUNTER 2019-04-30 12:33 | Emergency (ER) | payer MEDICAID, OTHER ==
[2019-04-30] MEDS ORDERED: KETOROLAC TROMETHAMINE 60 MG/2 ML SDV IM ONE (14:15)
[2019-04-30] MEDS ORDERED: DEXAMETHASONE SOD PHOS INJ 10 MG/1 ML VIAL IM ONE (14:15)
--- NOTE | 2019-04-30 14:23 | ER Document Report ---
ED Medical Screen (RME) - General Chief Complaint: Back Pain Stated Complaint: STOMACH PAIN Time Seen by Provider: 04/30/19 14:06 Primary Care Provider: AYDEE LOFTON MD [Primary Care Provider] - Follow up as needed Notes: Patient is a 53-year-old female who presents emergency department with back pain. About 3 weeks ago she fell off her swing and fell on her back. She was seen here in the emergency department, but did not follow-up with her primary care provider. She states that she has not been able to get out of bed without help since the incident. She states that now she is having some numbness and tingling on her left leg and is not able to move her right foot way she is supposed to. She describes her pain as liquid running up and down her back. She admits to not knowing when she has bowel movements or urinates. Exam: Tender mid lower back. I have greeted and performed a rapid initial assessment of this patient. A comprehensive ED assessment and evaluation of the patient, analysis of test results and completion of medical decision making process will be conducted by an additional ED providers. TRAVEL OUTSIDE OF THE [place] IN LAST 30 DAYS: No - Related Data Allergies/Adverse Reactions: hydrocodone bitartrate [From Vicodin] Allergy (Verified 04/10/19 09:19) morphine [Morphine] Allergy (Verified 04/10/19 09:19) Past Medical History - Past Medical History Cardiac Medical History: Reports: Hx Hypertension Pulmonary Medical History: Reports: Hx Bronchitis, Hx COPD Renal/ Medical History: Reports: Hx Kidney Stones. Denies: Hx Peritoneal Dialysis GI Medical History: Reports: Hx Crohn's Disease, Hx Hepatitis Musculoskeltal Medical History: Reports Hx Arthritis Psychiatric Medical History: Reports: Hx Bipolar Disorder - Ptsd, Hx Depression Infectious Medical History: Reports: Hx Hepatitis Past Surgical History: Reports: Hx Orthopedic Surgery - rotator cuff, HIP MARINA JASON, Hx Tubal Ligation - Immunizations Hx Diphtheria, Pertussis, Tetanus Vaccination: Yes History of Influenza Vaccine for 06/2017 - 11/2017 Season: Unknown Physical Exam - Vital signs Vitals: Temp Pulse Resp BP Pulse Ox 98.8 F 80 18 143/85 H 96 04/30/19 12:45 04/30/19 12:45 04/30/19 12:45 04/30/19 12:45 04/30/19 12:45 Course - Vital Signs Vital signs: Temp Pulse Resp BP Pulse Ox 98.8 F 80 18 143/85 H 96 04/30/19 12:45 04/30/19 12:45 04/30/19 12:45 04/30/19 12:45 04/30/19 12:45 Doctor's Discharge - Discharge Referrals: AYDEE LOFTON MD [Primary Care Provider] - Follow up as needed
[2019-04-30] MEDS ORDERED: ONDANSETRON HCL INJ/PF 4 MG/2 ML SDV IV ONE (14:49)
[2019-04-30] MEDS ORDERED: HYDROMORPHONE HCL INJ/PF 2 MG/ML AMPULE IV ONE ×2 (14:49→18:40)
[2019-04-30] MEDS ORDERED: NORMAL SALINE 1000 ML 1,000 ML IV ONE (14:50)
--- NOTE | 2019-04-30 15:08 | ER Document Report ---
ED General - General Chief Complaint: Back Pain Stated Complaint: STOMACH PAIN Time Seen by Provider: 04/30/19 14:06 Primary Care Provider: AYDEE OLFTON MD [Primary Care Provider] - Follow up as needed Information source: Patient, Relative TRAVEL OUTSIDE OF THE [place] IN LAST 30 DAYS: No - HPI Notes: Patient complains of severe low back pain. She states this started about 5 months ago after falling off of her porch. She states she has had no relief and has progressively become more severe. It is worse with movement and better with rest. It is sharp and it does radiate down both legs. She also states she has some numbness in both lower extremities. She states she has had trouble controlling her urine. No trouble controlling bowel movements. No numbness around the vaginal rectal areas. She states she does use IV drugs, namely heroin. She has had no fevers or rashes. Pain is been severe. - Related Data Allergies/Adverse Reactions: hydrocodone bitartrate [From Vicodin] Allergy (Verified 04/10/19 09:19) morphine [Morphine] Allergy (Verified 04/10/19 09:19) Past Medical History - General Information source: Patient - Social History Smoking Status: Current Every Day Smoker Frequency of alcohol use: None Drug Abuse: Heroin Family History: Reviewed & Not Pertinent, Other - Past Medical History Cardiac Medical History: Reports: Hx Hypertension Pulmonary Medical History: Reports: Hx Bronchitis, Hx COPD Renal/ Medical History: Reports: Hx Kidney Stones. Denies: Hx Peritoneal Dialysis GI Medical History: Reports: Hx Crohn's Disease, Hx Hepatitis Musculoskeletal Medical History: Reports Hx Arthritis Psychiatric Medical History: Reports: Hx Bipolar Disorder - Ptsd, Hx Depression Infectious Medical History: Reports: Hx Hepatitis Past Surgical History: Reports: Hx Orthopedic Surgery - rotator cuff, HIP SURGERY, Hx Tubal Ligation - Immunizations Hx Diphtheria, Pertussis, Tetanus Vaccination: Yes Review of Systems - Review of Systems Constitutional: Malaise, Weakness. denies: Chills, Fever Cardiovascular: denies: Chest pain, Dyspnea Respiratory: denies: Cough, Short of breath -: Yes All other systems reviewed and negative Physical Exam - Vital signs Vitals: Temp Pulse Resp BP Pulse Ox 98.8 F 80 18 143/85 H 96 04/30/19 12:45 04/30/19 12:45 04/30/19 12:45 04/30/19 12:45 04/30/19 12:45 Interpretation: Hypertensive - General General appearance: Appears well, Alert - HEENT Head: Normocephalic, Atraumatic Eyes: Normal Pupils: PERRL - Respiratory Respiratory status: No respiratory distress Chest status: Nontender Breath sounds: Normal Chest palpation: Normal - Cardiovascular Rhythm: Regular Heart sounds: Normal auscultation Murmur: No - Abdominal Inspection: Normal Distension: No distension Bowel sounds: Normal Tenderness: Nontender Organomegaly: No organomegaly - Back Back: Tender - Patient has diffuse tenderness to palpation of the lower thoracic and entire lumbar spine as far as the bony prominences. No step-offs or deformities are appreciated. - Extremities General upper extremity: Normal inspection, Nontender, Normal color, Normal ROM, Normal temperature General lower extremity: Normal inspection, Nontender, Normal color, Normal ROM, Normal temperature, Normal weight bearing. No: Neo's sign - Neurological Neuro grossly intact: Yes Cognition: Normal Orientation: AAOx4 [place] Coma Scale Eye Opening: Spontaneous Marlin Coma Scale Verbal: Oriented Marlin Coma Scale Motor: Obeys Commands Marlin Coma Scale Total: 15 Speech: Normal Motor strength normal: LUE, RUE, LLE, RLE - pt has 2/5 right dorsiflexion of right ankle Sensory: Altered light touch - bilat lower ext - Psychological Associated symptoms: Normal affect, Normal mood - Skin Skin Temperature: Warm Skin Moisture: Dry Skin Color: Normal Course - Re-evaluation Re-evalutation: 04/30/19 22:40 At this time patient resting comfortably in the bed. Pain is under control. I discussed the case with the neurosurgeon at [facility], DR. Carter. He felt that the MRI, which he personally reviewed, was not consistent with cauda equina. He states that patient could follow-up in his office. This was relayed to the patient and she is agreeable to this plan. - Vital Signs Vital signs: Temp Pulse Resp BP Pulse Ox 98.8 F 80 18 123/72 93 04/30/19 12:45 04/30/19 12:45 04/30/19 12:45 04/30/19 21:01 04/30/19 21:01 - Laboratory Result Diagrams: 04/30/19 16:20 04/30/19 16:20 Laboratory results interpreted by me: 04/30/19 04/30/19 04/30/19 16:20 16:20 19:05 Hgb 11.9 L Hct 34.7 L Sodium 135.5 L Glucose 111 H Direct Bilirubin 0.7 H AST 39 H Total Protein 8.8 H Urine Urobilinogen 2.0 H Ur Leukocyte Esterase LARGE H Laboratory 04/30/19 04/30/19 04/30/19 16:20 16:20 17:18 WBC 9.5 RBC 3.88 Hgb 11.9 L Hct 34.7 L MCV 89 MCH 30.5 MCHC 34.2 RDW 13.2 Plt Count 159 Seg Neutrophils % 66.6 Lymphocytes % 24.6 Monocytes % 6.3 Eosinophils % 1.9 Basophils % 0.6 Absolute Neutrophils 6.3 Absolute Lymphocytes 2.3 Absolute Monocytes 0.6 Absolute Eosinophils 0.2 Absolute Basophils 0.1 Sodium 135.5 L Potassium 3.9 Chloride 99 Carbon Dioxide 26 Anion Gap 11 BUN 15 Creatinine 0.65 Est GFR ( Amer) > 60 Est GFR (Non-Af Amer) > 60 Glucose 111 H Lactic Acid 1.2 Calcium 9.4 Total Bilirubin 0.9 Direct Bilirubin 0.7 H Neonat Total Bilirubin Not Reportable Neonat Direct Bilirubin Not Reportable Neonat Indirect Bili Not Reportable AST 39 H ALT 14 Alkaline Phosphatase 104 Total Protein 8.8 H Albumin 4.2 Urine Color Urine Appearance Urine pH Ur Specific [place] Urine Protein Urine Glucose (UA) Urine Ketones Urine Blood Urine Nitrite Urine Bilirubin Urine Urobilinogen Ur Leukocyte Esterase Urine WBC (Auto) Urine RBC (Auto) U Hyaline Cast (Auto) Squamous Epi Cells Auto Urine Mucus (Auto) Urine Ascorbic Acid 04/30/19 19:05 WBC RBC Hgb Hct MCV MCH MCHC RDW Plt Count Seg Neutrophils % Lymphocytes % Monocytes % Eosinophils % Basophils % Absolute Neutrophils Absolute Lymphocytes Absolute Monocytes Absolute Eosinophils Absolute Basophils Sodium Potassium Chloride Carbon Dioxide Anion Gap BUN Creatinine Est GFR ( Amer) Est GFR (Non-Af Amer) Glucose Lactic Acid Calcium Total Bilirubin Direct Bilirubin Neonat Total Bilirubin Neonat Direct Bilirubin Neonat Indirect Bili AST ALT Alkaline Phosphatase Total Protein Albumin Urine Color YELLOW Urine Appearance SLIGHTLY-CLOUDY Urine pH 6.0 Ur Specific [place] 1.018 Urine Protein NEGATIVE Urine Glucose (UA) NEGATIVE Urine Ketones NEGATIVE Urine Blood NEGATIVE Urine Nitrite NEGATIVE Urine Bilirubin NEGATIVE Urine Urobilinogen 2.0 H Ur Leukocyte Esterase LARGE H Urine WBC (Auto) 7 Urine RBC (Auto) 5 U Hyaline Cast (Auto) 1 Squamous Epi Cells Auto 5 Urine Mucus (Auto) RARE Urine Ascorbic Acid NEGATIVE - Diagnostic Test Radiology reviewed: Image reviewed, Reports reviewed Radiology results interpreted by me: 04/30/19 21:28 Lumbar Spine MRI 04/30/19 14:46 IMPRESSION: Scoliosis. Multilevel disc changes. Findings as described. Discharge - Discharge Clinical Impression: Lumbar radicular pain, Polysubstance abuse Condition: Stable Disposition: HOME, SELF-CARE Instructions: Low Back Pain ([facility]) Additional Instructions: Please call Dr. Carter's office as soon as possible to arrange follow-up Prescriptions: Tramadol HCl [Ultram 50 mg Tablet] 50 mg PO Q4HP PRN #15 tab PRN Reason: Forms: Parent Work Note Referrals: AYDEE LOFTON MD [Primary Care Provider] - Follow up as needed GAB CARTER MD [NO LOCAL MD] - Follow up tomorrow
[2019-04-30 17:04] LABS: ABSOLUTE BASOPHILS # (AUTO) 0.1 10^3/uL (0.0-0.2); ABSOLUTE EOSINOPHILS # (AUTO) 0.2 10^3/uL (0.0-0.6); ABSOLUTE LYMPHOCYTES (AUTO) 2.3 10^3/uL (0.5-4.7); ABSOLUTE MONOCYTES (AUTO) 0.6 10^3/uL (0.1-1.4); ABSOLUTE NEUT (AUTO) 6.3 10^3/uL (1.7-8.2); BASOPHILS % (AUTO) 0.6 % (0-2); EOSINOPHILS % (AUTO) 1.9 % (0-6); HEMATOCRIT 34.7 % (36.0-47.0); HEMOGLOBIN 11.9 g/dL (12.0-15.5); LYMPHOCYTES % (AUTO) 24.6 % (13-45); MEAN CORPUSCULAR HEMOGLOBIN 30.5 pg (27.0-33.4); MEAN CORPUSCULAR HGB CONC 34.2 g/dL (32.0-36.0); MEAN CORPUSCULAR VOLUME 89 fl (80-97); MONOCYTES % (AUTO) 6.3 % (3-13); RED BLOOD COUNT 3.88 10^6/uL (3.72-5.28); RED CELL DISTRIBUTION WIDTH 13.2 % (11.5-14.0); SEGMENTED NEUTROPHILS % (AUTO) 66.6 % (42-78); TOTAL CELLS COUNTED % (AUTO) 100 %; WHITE BLOOD COUNT 9.5 10^3/uL (4.0-10.5)
[2019-04-30 17:25] LABS: ALBUMIN 4.2 g/dL (3.5-5.0); ALKALINE PHOSPHATASE 104 U/L (38-126); ANION GAP 11 (5-19); ASPARTATE AMINO TRANSFERASE 39 U/L (14-36); BILIRUBIN,DIRECT 0.7 mg/dL (0.0-0.4); BILIRUBIN,TOTAL 0.9 mg/dL (0.2-1.3); BLOOD UREA NITROGEN 15 mg/dL (7-20); CALCIUM 9.4 mg/dL (8.4-10.2); CARBON DIOXIDE 26 mmol/L (22-30); CHLORIDE 99 mmol/L (98-107); GLUCOSE 111 mg/dL (75-110); PLATELET COUNT 159 10^3/uL (150-450); POTASSIUM 3.9 mmol/L (3.6-5.0); TOTAL PROTEIN 8.8 g/dL (6.3-8.2)
--- NOTE | 2019-04-30 19:14 | RADIOLOGY REPORT (SQ) ---
EXAM DESCRIPTION: MRI LUMBAR SPINE COMBO COMPLETED DATE/TIME: 04/30/2019 6:26 pm REASON FOR STUDY: ivda/back pain/leg weakness COMPARISON: None. TECHNIQUE: Sagittal and Axial imaging includes T1, T1 post gadolinium, T2, STIR and gradient echo se quences. Coronal T2/HASTE imaging. CONTRAST TYPE AND DOSE: 10 mL Dotarem. RENAL FUNCTION: Not indicated. ACR Type II contrast agent associated with few, if any, unconfounded cases of NSF LIMITATIONS: None. FINDINGS: VISUALIZED UPPER ABDOMEN: Limited evaluation. No acute or suspicious findings suggested. SEGMENTATION: No transitional anatomy. The lowest well-developed disc space is labeled L5-S1. ALIGNMENT: Anatomic. VERTEBRAE: Intact. No fractures. BONE MARROW: Reactive marrow changes at L3-4 DISC SIGNAL: Decreased signal intensity from all the lumbar discs. POSTERIOR ELEMENTS: Generally intact. No pars defect evident. HARDWARE: None in the spine. CORD AND CONUS: Normal in size and signal intensity. Conus at the T12-L1 level. SOFT TISSUES: No aortic aneurysm seen. No bulky retroperitoneal adenopathy or mass. No paraspinal mas s or fluid. L1-L2: No significant spinal stenosis or exit foraminal stenosis. L2-L3: Concentric disc bulging with mild facet and ligament hypertrophy. Mild central canal stenosis and mild left foraminal stenosis. L3-L4: Circumferential disc bulging with facet and ligament hypertrophy resulting in mild central can al stenosis and mild bilateral foraminal stenoses. The disc may contact the exiting nerve roots outs jeremy of the neural foramina. L4-L5: Circumferential disc bulging with mild central canal stenosis and mild bilateral foraminal florence noses. L5-S1: No significant spinal stenosis or exit foraminal stenosis. LOWER THORACIC: Incompletely imaged. No stenosis seen. SACRUM: Visualized upper sacrum intact. ENHANCEMENT: No abnormal enhancement. OTHER: No other significant findings. IMPRESSION: Scoliosis. Multilevel disc changes. Findings as described. TECHNICAL DOCUMENTATION: JOB ID: [id number]- All Rights Reserved Reading location - IP/workstation name: [email or web address]
[2019-04-30 19:44] LABS: APPEARANCE,URINE SLIGHTLY-CLOUDY; BILIRUBIN,URINE NEGATIVE (NEGATIVE); COLOR,URINE YELLOW; GLUCOSE, URINE NEGATIVE (NEGATIVE); KETONES,URINE NEGATIVE (NEGATIVE); LEUKOCYTE ESTERASE,URINE LARGE (NEGATIVE); NITRITE,URINE NEGATIVE (NEGATIVE); PROTEIN,URINE NEGATIVE (NEGATIVE); URINE SPECIFIC GRAVITY 1.018
[2019-04-30 23:07] VITALS: BP 171/90
[2019-04-30] MEDS ORDERED: OXYCODONE-ACETAMINOPHEN 5-325 MG TABLET PO ONE (23:07)
== END 2019-04-30 23:15 | disposition home or self-care (01) ==
LOC: ER 12:33
DX: M54.5 Low back pain (principal); M41.9 Scoliosis, unspecified; F19.10 Other psychoactive substance abuse, uncomplicated; F17.200 Nicotine dependence, unspecified, uncomplicated; I10 Essential (primary) hypertension; J44.9 Chronic obstructive pulmonary disease, unspecified; Z87.442 Personal history of urinary calculi; Z88.6 Allergy status to analgesic agent; Z98.51 Tubal ligation status
CPT/HCPCS: 36415; 87040; 85025; 80053; 81001; 83605; 72158; J1885; J1170; J2405; J7030; J1100; 96361; 96372; 96374; 96375; 96376; 99284

== ENCOUNTER → 2019-07-20 | Outpatient (CLI) | payer MEDICAID ==
[2019-07-20 10:48] LABS: ABSOLUTE EOSINOPHILS # (AUTO) 0.2 10^3/uL (0.0-0.6); ABSOLUTE LYMPHOCYTES (AUTO) 1.8 10^3/uL (0.5-4.7); ABSOLUTE MONOCYTES (AUTO) 0.3 10^3/uL (0.1-1.4); ABSOLUTE NEUT (AUTO) 4.1 10^3/uL (1.7-8.2); BASOPHILS % (AUTO) 0.6 % (0-2); EOSINOPHILS % (AUTO) 2.5 % (0-6); HEMATOCRIT 34.9 % (36.0-47.0); HEMOGLOBIN 11.8 g/dL (12.0-15.5); LYMPHOCYTES % (AUTO) 28.4 % (13-45); MEAN CORPUSCULAR HEMOGLOBIN 29.6 pg (27.0-33.4); MEAN CORPUSCULAR HGB CONC 33.8 g/dL (32.0-36.0); MEAN CORPUSCULAR VOLUME 88 fl (80-97); MONOCYTES % (AUTO) 4.7 % (3-13); PLATELET COUNT 151 10^3/uL (150-450); RED BLOOD COUNT 3.98 10^6/uL (3.72-5.28); RED CELL DISTRIBUTION WIDTH 13.9 % (11.5-14.0); SEGMENTED NEUTROPHILS % (AUTO) 63.8 % (42-78); TOTAL CELLS COUNTED % (AUTO) 100 %; WHITE BLOOD COUNT 6.4 10^3/uL (4.0-10.5)
[2019-07-20 10:50] LABS: APPEARANCE,URINE CLEAR; BILIRUBIN,URINE NEGATIVE (NEGATIVE); COLOR,URINE YELLOW; GLUCOSE, URINE NEGATIVE (NEGATIVE); KETONES,URINE NEGATIVE (NEGATIVE); LEUKOCYTE ESTERASE,URINE NEGATIVE (NEGATIVE); NITRITE,URINE NEGATIVE (NEGATIVE); PROTEIN,URINE NEGATIVE (NEGATIVE)
[2019-07-20 11:14] LABS: ALBUMIN 4.4 g/dL (3.5-5.0); ALKALINE PHOSPHATASE 70 U/L (38-126); ANION GAP 11 (5-19); ASPARTATE AMINO TRANSFERASE 29 U/L (14-36); BILIRUBIN,DIRECT 0.2 mg/dL (0.0-0.4); BILIRUBIN,TOTAL 0.4 mg/dL (0.2-1.3); BLOOD UREA NITROGEN 18 mg/dL (7-20); CALCIUM 9.7 mg/dL (8.4-10.2); CARBON DIOXIDE 27 mmol/L (22-30); CHLORIDE 105 mmol/L (98-107); CHOLESTEROL 234.23 mg/dL (0-200); GLUCOSE 97 mg/dL (75-110); IRON(TIBC) 39.2 ug/dL (37-170); POTASSIUM 3.8 mmol/L (3.6-5.0); TOTAL PROTEIN 8.6 g/dL (6.3-8.2); TRIGLYCERIDES 113 mg/dL (<150)
[2019-07-20 11:26] LABS: DIRECT LDL 145 mg/dL (<100)
[2019-07-21 05:38] LABS: HEPATITIS C VIRUS AB >11.0 s/co ratio (0.0-0.9)
[2019-07-21 13:37] LABS: CREATININE URINE 156.9 mg/dL (Not Estab.); MICROALBUMIN URINE 5.2 ug/mL (Not Estab.)
== END ==
LOC: LAB 09:40
PROVIDERS: ATTEND Family Medicine
DX: B18.2 Chronic viral hepatitis C (principal); R73.9 Hyperglycemia, unspecified; E55.9 Vitamin D deficiency, unspecified; D50.9 Iron deficiency anemia, unspecified; I10 Essential (primary) hypertension; E78.2 Mixed hyperlipidemia
CPT/HCPCS: 36415; 80053; 80061; 81005; 82043; 82306; 82570; 82728; 83036; 83540; 83550; 83735; 85025; 86701; 86803; 86804

== ENCOUNTER → 2019-12-17 | Outpatient (CLI) | payer MEDICAID ==
--- NOTE | 2019-12-18 08:01 | EKG REPORT ---
SEVERITY:- OTHERWISE NORMAL ECG - SINUS RHYTHM LEFT AXIS DEVIATION : Confirmed by: Kizzy Gutierrez MD 18-Dec-2019 08:00:33
== END ==
LOC: OD 14:46
PROVIDERS: ATTEND Pain Medicine Interventional Pain Medicine
DX: I49.9 Cardiac arrhythmia, unspecified (principal)
CPT/HCPCS: 93005; 93010

== ENCOUNTER → 2020-01-31 | Outpatient (CLI) | payer MEDICAID ==
[2020-01-31 15:20] LABS: ABSOLUTE EOSINOPHILS # (AUTO) 0.1 10^3/uL (0.0-0.6); ABSOLUTE LYMPHOCYTES (AUTO) 2.2 10^3/uL (0.5-4.7); ABSOLUTE MONOCYTES (AUTO) 0.4 10^3/uL (0.1-1.4); ABSOLUTE NEUT (AUTO) 3.8 10^3/uL (1.7-8.2); BASOPHILS % (AUTO) 0.4 % (0-2); EOSINOPHILS % (AUTO) 1.8 % (0-6); HEMATOCRIT 39.2 % (36.0-47.0); HEMOGLOBIN 13.7 g/dL (12.0-15.5); LYMPHOCYTES % (AUTO) 33.3 % (13-45); MEAN CORPUSCULAR HEMOGLOBIN 31.2 pg (27.0-33.4); MEAN CORPUSCULAR HGB CONC 34.9 g/dL (32.0-36.0); MEAN CORPUSCULAR VOLUME 90 fl (80-97); MONOCYTES % (AUTO) 6.5 % (3-13); PLATELET COUNT 153 10^3/uL (150-450); RED BLOOD COUNT 4.38 10^6/uL (3.72-5.28); RED CELL DISTRIBUTION WIDTH 12.6 % (11.5-14.0); TOTAL CELLS COUNTED % (AUTO) 100 %; WHITE BLOOD COUNT 6.6 10^3/uL (4.0-10.5)
[2020-01-31 15:39] LABS: ALBUMIN 4.4 g/dL (3.5-5.0); ALKALINE PHOSPHATASE 111 U/L (38-126); ANION GAP 8 (5-19); ASPARTATE AMINO TRANSFERASE 60 U/L (14-36); BILIRUBIN,DIRECT 0.2 mg/dL (0.0-0.4); BILIRUBIN,TOTAL 0.4 mg/dL (0.2-1.3); BLOOD UREA NITROGEN 17 mg/dL (7-20); CALCIUM 9.4 mg/dL (8.4-10.2); CARBON DIOXIDE 31 mmol/L (22-30); CHLORIDE 97 mmol/L (98-107); CREATINE KINASE 217 U/L (30-135); GLUCOSE 117 mg/dL (75-110); POTASSIUM 3.3 mmol/L (3.6-5.0); TOTAL PROTEIN 8.1 g/dL (6.3-8.2); TRIGLYCERIDES 124 mg/dL (<150)
[2020-01-31 15:50] LABS: DIRECT LDL 119 mg/dL (<100)
== END ==
LOC: OD 14:16
PROVIDERS: ATTEND Family Medicine
DX: I10 Essential (primary) hypertension (principal); E78.2 Mixed hyperlipidemia; B18.2 Chronic viral hepatitis C; E55.9 Vitamin D deficiency, unspecified; D64.9 Anemia, unspecified
CPT/HCPCS: 36415; 80053; 80061; 82306; 82550; 82977; 85025

== ENCOUNTER 2020-04-18 09:23 | Emergency (ER) | payer MEDICAID ==
--- NOTE | 2020-04-18 09:40 | EKG REPORT ---
SEVERITY:- BORDERLINE ECG - SINUS RHYTHM BORDERLINE INFERIOR Q WAVES : Confirmed by: David Martinez MD 18-Apr-2020 09:40:05
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
--- NOTE | 2020-04-18 13:30 | RADIOLOGY REPORT (SQ) ---
EXAM DESCRIPTION: FOOT RIGHT COMPLETE IMAGES COMPLETED DATE/TIME: 04/18/2020 1:20 pm REASON FOR STUDY: CHRONIC WOUND COMPARISON: None. NUMBER OF VIEWS: Three views. TECHNIQUE: AP, lateral and oblique radiographic images acquired of the right foot. LIMITATIONS: None. FINDINGS: MINERALIZATION: Normal. BONES: No acute fracture or dislocation. No worrisome bone lesions. JOINTS: No effusions. SOFT TISSUES: No soft tissue swelling. No foreign body. OTHER: No other significant finding. IMPRESSION: NEGATIVE STUDY OF THE RIGHT FOOT. NO RADIOGRAPHIC EVIDENCE OF ACUTE INJURY. TECHNICAL DOCUMENTATION: JOB ID: [id number] 2010 [employer]- All Rights Reserved Reading location - IP/workstation name: [email or web address]
--- NOTE | 2020-04-18 13:31 | RADIOLOGY REPORT (SQ) ---
EXAM DESCRIPTION: CHEST SINGLE VIEW IMAGES COMPLETED DATE/TIME: 04/18/2020 1:20 pm REASON FOR STUDY: sob fever COMPARISON: 06/11/2008 EXAM PARAMETERS: NUMBER OF VIEWS: One view. TECHNIQUE: Single frontal radiographic view of the chest acquired. RADIATION DOSE: NA LIMITATIONS: None. FINDINGS: LUNGS AND PLEURA: Bibasilar atelectasis. No pneumothorax. Small left effusion cannot be excluded. MEDIASTINUM AND HILAR STRUCTURES: No masses. Contour normal. HEART AND VASCULAR STRUCTURES: Heart size is normal. No overt failure. BONES: No acute findings. HARDWARE: Cormier rods are in the spine. OTHER: No other significant finding. IMPRESSION: Basilar airspace disease most likely atelectasis. Possible small left effusion. TECHNICAL DOCUMENTATION: JOB ID: [id number] 2010 [employer]- All Rights Reserved Reading location - IP/workstation name: [email or web address]
[2020-04-18 13:40] LABS: ALBUMIN 3.6 g/dL (3.5-5.0); ALKALINE PHOSPHATASE 82 U/L (38-126); ANION GAP 7 (5-19); ASPARTATE AMINO TRANSFERASE 58 U/L (14-36); BILIRUBIN,DIRECT 0.1 mg/dL (0.0-0.4); BILIRUBIN,TOTAL 1.1 mg/dL (0.2-1.3); BLOOD UREA NITROGEN 15 mg/dL (7-20); CALCIUM 8.5 mg/dL (8.4-10.2); CARBON DIOXIDE 22 mmol/L (22-30); CHLORIDE 107 mmol/L (98-107); GLUCOSE 95 mg/dL (75-110); POTASSIUM 4.8 mmol/L (3.6-5.0); TOTAL PROTEIN 7.1 g/dL (6.3-8.2)
[2020-04-18 14:02] LABS: ABSOLUTE EOSINOPHILS # (AUTO) 0.2 10^3/uL (0.0-0.6); ABSOLUTE LYMPHOCYTES (AUTO) 1.4 10^3/uL (0.5-4.7); ABSOLUTE MONOCYTES (AUTO) 0.5 10^3/uL (0.1-1.4); ABSOLUTE NEUT (AUTO) 4.9 10^3/uL (1.7-8.2); BASOPHILS % (AUTO) 0.3 % (0-2); EOSINOPHILS % (AUTO) 2.8 % (0-6); HEMATOCRIT 34.3 % (36.0-47.0); HEMOGLOBIN 11.8 g/dL (12.0-15.5); MEAN CORPUSCULAR HGB CONC 34.5 g/dL (32.0-36.0); MEAN CORPUSCULAR VOLUME 90 fl (80-97); MONOCYTES % (AUTO) 6.5 % (3-13); PLATELET COUNT 117 10^3/uL (150-450); RED BLOOD COUNT 3.81 10^6/uL (3.72-5.28); RED CELL DISTRIBUTION WIDTH 13.3 % (11.5-14.0); SEGMENTED NEUTROPHILS % (AUTO) 70.4 % (42-78); TOTAL CELLS COUNTED % (AUTO) 100 %
[2020-04-18 14:16] LABS: A TYPE INFLUENZA AG NEGATIVE (NEGATIVE); B INFLUENZA AG NEGATIVE (NEGATIVE)
[2020-04-18 16:15] VITALS: BP 155/96
== END 2020-04-18 16:15 | disposition home or self-care (01) ==
LOC: ER 09:23
DX: R50.9 Fever, unspecified (principal); J44.9 Chronic obstructive pulmonary disease, unspecified; R06.02 Shortness of breath; R07.9 Chest pain, unspecified; J02.9 Acute pharyngitis, unspecified; R10.9 Unspecified abdominal pain; L53.9 Erythematous condition, unspecified; R23.4 Changes in skin texture; F11.11 Opioid abuse, in remission; F17.200 Nicotine dependence, unspecified, uncomplicated; I10 Essential (primary) hypertension; Z79.899 Other long term (current) drug therapy; Z20.828 Contact with and (suspected) exposure to other viral communicable diseases; Z88.6 Allergy status to analgesic agent; Z88.5 Allergy status to narcotic agent
CPT/HCPCS: 93005; 99284; 36415; 87070; 87880; 83690; 85025; 87635; 80053; 87804; 71045; 73630; 93010; C9803

== ENCOUNTER 2020-05-22 06:35 | Emergency (ER) | payer MEDICAID ==
--- NOTE | 2020-05-22 06:56 | ER Document Report ---
ED General - General Chief Complaint: Back Injury Stated Complaint: FALL/SPINE/SIDE/HEAD INJURY Time Seen by Provider: 05/22/20 06:54 Primary Care Provider: AYDEE LOFTON MD [Primary Care Provider] - Follow up in 3-5 days Cannot obtain history due to: Dementia, Unstable vital signs, Other Notes: 54-year-old lady presents with mild head pain nonradiating, right middle finger pain and swelling and left low back pain after a fall from standing yesterday. Pain is constant. Pain is worse with certain movements. History of back surgery. No LOC no blood thinners. She has been taking Tyleno l. She 60 days clean from narcotics which she was abusing in the setting of chronic pain needs some paperwork filled out for her outpatient detox. TRAVEL OUTSIDE OF THE [place] IN LAST 30 DAYS: No - Related Data Allergies/Adverse Reactions: hydrocodone bitartrate [From Vicodin] Allergy (Verified 04/10/19 09:19) morphine [Morphine] Allergy (Verified 04/10/19 09:19) Home Medications: 24 HOME MEDICATIONS Past Medical History - General Information source: Patient - Social History Smoking Status: Current Every Day Smoker Smoking Education Provided: Yes - The patient ED visit today was directly related to their abuse of tobacco. Family History: Reviewed & Not Pertinent, Other - Past Medical History Cardiac Medical History: Reports: Hx Hypertension Pulmonary Medical History: Reports: Hx Bronchitis, Hx COPD Renal/ Medical History: Reports: Hx Kidney Stones. Denies: Hx Peritoneal Dialysis GI Medical History: Reports: Hx Crohn's Disease, Hx Hepatitis Musculoskeletal Medical History: Reports Hx Arthritis Psychiatric Medical History: Reports: Hx Bipolar Disorder - Ptsd, Hx Depression Infectious Medical History: Reports: Hx Hepatitis Past Surgical History: Reports: Hx Orthopedic Surgery - rotator cuff, HIP SURGERY, Hx Tubal Ligation - Immunizations Hx Diphtheria, Pertussis, Tetanus Vaccination: Yes Review of Systems - Review of Systems Notes: REVIEW OF SYSTEMS GEN: Denies fever, chills, weight loss ENT: Denies sore throat, nasal discharge, ear pain EYES: Denies blurry vision, eye pain, discharge CV: Denies chest pain, palpitations, edema RESP: Denies cough, shortness of breath, wheezing GI: Denies abdominal pain, nausea, vomiting, diarrhea MSK: Back pain finger pain, SKIN: Denies rash, skin lesions LYMPH: Denies swollen glands/lymph nodes NEURO: Headache, denies focal weakness or numbness, dizziness PSYCH: Denies depression, suicidal or homicidal ideation PHYSICAL EXAMINATION General: No acute distress, well-nourished Head: Atraumatic, normocephalic ENT: Mouth normal, oropharynx moist, no exudates or tonsillar enlargement Eyes: Conjunctiva normal, pupils equal, lids normal Neck: No JVD, supple, no guarding CVS: Normal rate, regular rhythm, no murmurs Resp: No resp distress, equal and normal breath sounds bilaterally GI: Nondistended, soft, no tenderness to palpation, no rebound or guarding Ext: No deformities, no edema, normal range of motion in upper and lower ext Back: No CVA or midline TTP Skin: No rash, warm Lymphatic: No lymphadeopathy noted Neuro: Awake, alert. Face symmetric. GCS 15. Course - Re-evaluation Re-evalutation: 05/22/20 07:40 Fall from standing with finger sprain negative x-ray backslash flank contusion with no external trauma normal spine x-ray other than chronic degenerative changesno neuro symptoms. Negative head CT in the setting of mild head trauma and no blood thinners Paperwork filled out Tylenol Motrin discharge, follow-up primary care and with detox. I have discussed with the patient there likely diagnosis, aftercare plan, follow-up plans and my usual and customary return precautions. They verbalized understanding of this. - Diagnostic Test Radiology reviewed: Image reviewed, Reports reviewed Discharge - Discharge Clinical Impression: Fall from standing Qualifiers: Encounter type: initial encounter Qualified Code(s): W19.XXXA - Unspecified fall, initial encounter Back contusion Qualifiers: Encounter type: initial encounter Laterality: unspecified laterality Qualified Code(s): S20.229A - Contusion of unspecified back wall of thorax, initial encounter Condition: Good Disposition: HOME, SELF-CARE Instructions: Ice Packs ([facility]), Low Back Pain ([facility]) Additional Instructions: We did not find any serious issues with your back finger or head. Please take ibuprofen and Tylenol for pain and follow-up with primary care within 3 to 5 days. Referrals: AYDEE LOFTON MD [Primary Care Provider] - Follow up in 3-5 days
--- NOTE | 2020-05-22 07:25 | RADIOLOGY REPORT (SQ) ---
EXAM DESCRIPTION: CT HEAD WITHOUT IV CONTRAST COMPLETED DATE/TME: 05/22/2020 06:54 CLINICAL HISTORY: 54 years, Female, fall pain COMPARISON: 06/26/2017 TECHNIQUE: Axial CT images of the brain were obtained without contrast. Sagittal and coronal reformats were performed. DLP 1150 Images stored on PACS. All CT scanners at this facility use dose modulation, iterative reconstruction, and/or weight based dosing when appropriate to reduce radiation dose to as low as reasonably achievable (ALARA). [facility]: Dose Right [facility]: CareDose [facility]: Dose Right [facility]: Teradose 4D [facility]: Birdback LIMITATIONS: None. FINDINGS: There is no acute cortical infarct, hemorrhage, mass, edema, hydrocephalus, or extra-axial fluid collection. Brain volume is age-appropriate. Escalante-white matter differentiation is preserved. The paranasal sinuses and mastoid air cells are clear. There is no acute fracture. No large soft tissue swelling. IMPRESSION: No acute intracranial abnormality. TECHNICAL DOCUMENTATION: Quality ID # [id number]: Final reports with documentation of one or more dose reduction techniques (e.g., Automated exposure control, adjustment of the mA and/or kV according to patient size, use of iterative reconstruction technique) copyright 2010 [employer]- All Rights Reserved
--- NOTE | 2020-05-22 07:56 | RADIOLOGY REPORT (SQ) ---
EXAM DESCRIPTION: XR FINGERS COMPLETED DATE/TME: 05/22/2020 06:55 CLINICAL HISTORY: 54 years Female, fall pain COMPARISON: None. Findings: Bones, joints, and soft tissues of the RIGHT XR 3RD FINGER 3 VIEWS appear intact. IMPRESSION: No acute findings.
--- NOTE | 2020-05-22 07:58 | RADIOLOGY REPORT (SQ) ---
Lumbar spine x-ray five views on 05/22/2020 at 8:07 AM CLINICAL INDICATION: Low back pain after fall COMPARISON: 11/11/2016 FINDINGS: There is worsening levoscoliosis of the lumbar spine with its apex at the L3 level. Posterior fusion hardware is partially imaged in the lower thoracic spine. Degenerative disc disease is noted worse from L3 through L5. There is grade 1 spondylolisthesis at L4-5 secondary to degenerative facet disease. The lumbar spine is otherwise well aligned. There are no fractures. No other bony abnormality is noted. IMPRESSION: Levoscoliosis with degenerative changes in the lower lumbar spine with no acute abnormality.
== END 2020-05-22 07:51 | disposition home or self-care (01) ==
LOC: ER 06:35
DX: S20.229A Contusion of unspecified back wall of thorax, initial encounter (principal); R51 Headache; M79.644 Pain in right finger(s); M54.5 Low back pain; W18.30XA Fall on same level, unspecified, initial encounter; I10 Essential (primary) hypertension; F17.200 Nicotine dependence, unspecified, uncomplicated
CPT/HCPCS: 70450; 72110; 99284

== ENCOUNTER 2020-07-06 08:19 | Emergency (ER) | payer MEDICAID ==
[2020-07-06] MEDS ORDERED: VANCOMYCIN HCL INJ 1000 MG VIAL IV ONE (10:50)
[2020-07-06] MEDS ORDERED: KETOROLAC TROMETHAMINE INJ/PF 30 MG/1 ML SDV IV ONE (10:51)
[2020-07-06] MEDS ORDERED: DIPH/PERTUSS(ACELL)/TETANUS VAC/PF 0.5 ML SYR (>=10YO) IM ONE (10:51)
[2020-07-06 11:37] LABS: ABSOLUTE BASOPHILS # (AUTO) 0.1 10^3/uL (0.0-0.2); ABSOLUTE EOSINOPHILS # (AUTO) 0.5 10^3/uL (0.0-0.6); ABSOLUTE LYMPHOCYTES (AUTO) 2.4 10^3/uL (0.5-4.7); ABSOLUTE MONOCYTES (AUTO) 0.4 10^3/uL (0.1-1.4); ABSOLUTE NEUT (AUTO) 5.8 10^3/uL (1.7-8.2); BASOPHILS % (AUTO) 0.7 % (0-2); EOSINOPHILS % (AUTO) 5.7 % (0-6); HEMATOCRIT 41.5 % (36.0-47.0); HEMOGLOBIN 14.9 g/dL (12.0-15.5); LYMPHOCYTES % (AUTO) 26.2 % (13-45); MEAN CORPUSCULAR HEMOGLOBIN 31.9 pg (27.0-33.4); MEAN CORPUSCULAR HGB CONC 35.9 g/dL (32.0-36.0); MEAN CORPUSCULAR VOLUME 89 fl (80-97); MONOCYTES % (AUTO) 3.9 % (3-13); PLATELET COUNT 196 10^3/uL (150-450); RED BLOOD COUNT 4.66 10^6/uL (3.72-5.28); RED CELL DISTRIBUTION WIDTH 13.3 % (11.5-14.0); SEGMENTED NEUTROPHILS % (AUTO) 63.5 % (42-78); TOTAL CELLS COUNTED % (AUTO) 100 %; WHITE BLOOD COUNT 9.1 10^3/uL (4.0-10.5)
--- NOTE | 2020-07-06 11:53 | RADIOLOGY REPORT (SQ) ---
EXAM DESCRIPTION: ANKLE LEFT COMPLETE IMAGES COMPLETED DATE/TIME: 07/06/2020 11:40 am REASON FOR STUDY: pain/swelling COMPARISON: None. NUMBER OF VIEWS: Three views. TECHNIQUE: AP, lateral, and oblique radiographic images acquired of the left ankle. LIMITATIONS: None. FINDINGS: MINERALIZATION: Normal. BONES: No acute fracture or dislocation. No worrisome bone lesions. JOINTS: No effusions. SOFT TISSUES: No soft tissue swelling. No foreign body. OTHER: No other significant finding. IMPRESSION: NEGATIVE STUDY OF THE LEFT ANKLE. NO RADIOGRAPHIC EVIDENCE OF ACUTE INJURY. TECHNICAL DOCUMENTATION: JOB ID: [id number] 2010 [employer]- All Rights Reserved Reading location - IP/workstation name: [email or web address]
--- NOTE | 2020-07-06 11:54 | RADIOLOGY REPORT (SQ) ---
EXAM DESCRIPTION: FOOT LEFT COMPLETE IMAGES COMPLETED DATE/TIME: 07/06/2020 11:40 am REASON FOR STUDY: pain, swelling COMPARISON: None. NUMBER OF VIEWS: Three views. TECHNIQUE: AP, lateral and oblique radiographic images acquired of the left foot. LIMITATIONS: None. FINDINGS: MINERALIZATION: Normal. BONES: No acute fracture or dislocation. No worrisome bone lesions. JOINTS: No effusions. SOFT TISSUES: No soft tissue swelling. No foreign body. OTHER: No other significant finding. IMPRESSION: NEGATIVE STUDY OF THE LEFT FOOT. NO RADIOGRAPHIC EVIDENCE OF ACUTE INJURY. TECHNICAL DOCUMENTATION: JOB ID: [id number] 2010 [employer]- All Rights Reserved Reading location - IP/workstation name: [email or web address]
[2020-07-06 12:18] LABS: ERYTHROCYTE SEDIMENTATION RATE 35 mm/hr (0-30)
--- NOTE | 2020-07-06 13:49 | ER Document Report ---
ED General - General Chief Complaint: Foot Pain Stated Complaint: LEFT FOOT PAIN,WOUND Time Seen by Provider: 07/06/20 09:52 Primary Care Provider: DAMI LOFTON MD [Primary Care Provider] - Follow up as needed TRAVEL OUTSIDE OF THE [place] IN LAST 30 DAYS: No - HPI Notes: Chief complaint: Pain and swelling left foot and ankle HPI: 54-year-old patient followed by Dr. Dami Lofton with history of IV opiate abuse presents with infected wound over anterior aspect left foot and ankle progressively worse over several days. This been characterized by swelling, ulceration, redness and drainage. Patient denies any antibiotic allergies. States she has not had a tetanus booster within the last 5 years. She reports last use of actable opiates about 3 days ago. - Related Data Allergies/Adverse Reactions: hydrocodone bitartrate [From Vicodin] Allergy (Verified 07/06/20 08:48) morphine [Morphine] Allergy (Verified 07/06/20 08:48) Past Medical History - General Information source: Patient, Relative, [facility], 1928–1983 Records - Social History Smoking Status: Current Every Day Smoker Frequency of alcohol use: None Drug Abuse: Heroin Family History: Reviewed & Not Pertinent, Other - Past Medical History Cardiac Medical History: Reports: Hx Hypertension Pulmonary Medical History: Reports: Hx Bronchitis, Hx COPD Renal/ Medical History: Reports: Hx Kidney Stones. Denies: Hx Peritoneal Dialysis GI Medical History: Reports: Hx Crohn's Disease, Hx Hepatitis Musculoskeletal Medical History: Reports Hx Arthritis Psychiatric Medical History: Reports: Hx Bipolar Disorder - Ptsd, Hx Depression Infectious Medical History: Reports: Hx Hepatitis Past Surgical History: Reports: Hx Orthopedic Surgery - rotator cuff, HIP SURGERY, Hx Tubal Ligation - Immunizations Hx Diphtheria, Pertussis, Tetanus Vaccination: Yes Review of Systems - Review of Systems Notes: Constitutional: Negative for fever. HENT: Negative for sore throat. Eyes: Negative for visual changes. Cardiovascular: Negative for chest pain. Respiratory: Negative for shortness of breath. Gastrointestinal: Negative for abdominal pain, vomiting or diarrhea. Genitourinary: Negative for dysuria. Musculoskeletal: Negative for back pain. Skin: As per HPI. Neurological: Negative for headaches, weakness or numbness. 10 point ROS negative except as marked above and in HPI. Physical Exam - Vital signs Vitals: Temp Pulse Resp BP Pulse Ox 97.9 F 83 16 134/80 H 99 07/06/20 08:28 07/06/20 08:28 07/06/20 08:28 07/06/20 08:28 07/06/20 08:28 - Notes Notes: GENERAL: Female patient of approximately stated age who is alert and appearing in no acute distress. SKIN: Patient has an area of ulceration measuring 2.5 x 3.5 cm's over the proximal dorsal lateral aspect left foot and ankle. She has widespread needle tracks present upper and lower extremities. HEAD: Normocephalic atraumatic. EYES: PERRLA. EOMI. Conjunctivae and sclerae clear. EARS: CANALS AND TMS CLEAR. NOSE: CLEAR. MOUTH: Moist mucosa. Good dentition. No stridor or edema. No drooling. NECK: Supple. No masses or thyromegaly. No adenopathy. Carotids 2+ without bruits. No JVD. BACK: Symmetrical without tenderness. CHEST: Respirations unlabored. Breath sounds clear and symmetrical. HEART: Regular rhythm. No murmur gallop or rub. ABDOMEN: Soft nontender without masses, organomegaly or rebound. Bowel sounds n ormally active. No bruits. GENITALIA: Deferred. EXTREMITIES: 1+ edema redness and tenderness proximal dorsal lateral aspect left foot and ankle. No palpable fluctuance. No calf tenderness. Cap refill less than 1.5 seconds. Dorsalis pedis and posterior tibial pulses 3+ and symmetrical. NEUROLOGICAL: GCS 15. Alert and oriented x3. Fluent speech. Cranial nerves II through XII intact. Sensorimotor and cerebellar normal. Normal tone. PSYCHIATRIC: Appropriate affect. Course - Re-evaluation Re-evalutation: 07/06/20 16:00 Patient received IV vancomycin. We going to start her on oral clindamycin at home. X-rays of the foot and ankle were negative per radiologist. She did not have a fever nor elevation of her white count. Her CRP and sed rate were mildly elevated. Her discomfort is much improved after she received a single dose of IV Toradol here. She appears stable for outpatient follow-up with PMD and wound care clinic. Findings, clinical impression and plan of treatment have been discussed with patient/family. Understanding of current findings and recommendations has been acknowledged by them and there is agreement regarding disposition and follow-up. - Vital Signs Vital signs: Temp Pulse Resp BP Pulse Ox 97.9 F 83 16 134/80 H 99 07/06/20 08:28 07/06/20 08:28 07/06/20 08:28 07/06/20 08:28 07/06/20 08:28 - Laboratory Result Diagrams: 07/06/20 11:15 07/06/20 14:17 Laboratory results interpreted by me: 07/06/20 07/06/20 11:15 14:17 ESR 35 H Sodium 135.2 L AST 48 H ALT 40 H C-Reactive Protein 25.8 H Discharge - Discharge Clinical Impression: Ulcer soft tissue foot, Opiate abuse, continuous Condition: Stable Disposition: HOME, SELF-CARE Additional Instructions: Take prescribed medications as directed. Clean wound daily with mild soap and water. Apply Neosporin ointment and Telfa dressing. Follow-up with your primary care physician and WOUND CARE CLINIC. Return here as needed for new or worsening symptoms: Pain that is worsening or unimproved Uncontrolled vomiting High fever or shaking chills Overall worsening Prescriptions: Ketorolac Tromethamine [Toradol 10 mg Tablet] 10 mg PO Q6HP PRN 10 Days #20 tablet PRN Reason: Clindamycin HCl 300 mg PO TID #30 capsule Referrals: DAMI LOFTON MD [Primary Care Provider] - Follow up as needed Wound Care [Provider Group] - Follow up as needed
[2020-07-06 15:03] LABS: ALBUMIN 3.6 g/dL (3.5-5.0); ALKALINE PHOSPHATASE 79 U/L (38-126); ANION GAP 9 (5-19); ASPARTATE AMINO TRANSFERASE 48 U/L (14-36); BILIRUBIN,DIRECT 0.3 mg/dL (0.0-0.4); BILIRUBIN,TOTAL 0.4 mg/dL (0.2-1.3); BLOOD UREA NITROGEN 14 mg/dL (7-20); C-REACTIVE PROTEIN 25.8 mg/L (<10.0); CALCIUM 9.1 mg/dL (8.4-10.2); CARBON DIOXIDE 23 mmol/L (22-30); CHLORIDE 103 mmol/L (98-107); GLUCOSE 106 mg/dL (75-110); POTASSIUM 3.7 mmol/L (3.6-5.0)
[2020-07-06 16:06] LABS: URINE AMPHETAMINES SCREEN NEGATIVE; URINE BARBITURATES SCREEN NEGATIVE; URINE BENZODIAZEPINES SCREEN NEGATIVE; URINE COCAINE SCREEN NEGATIVE; URINE MARIJUANA (THC) SCREEN NEGATIVE; URINE METHADONE SCREEN NEGATIVE; URINE PHENCYCLIDINE SCREEN NEGATIVE
[2020-07-06 16:29] VITALS: BP 117/64
== END 2020-07-06 16:29 | disposition home or self-care (01) ==
LOC: ER 08:19
DX: L97.529 Non-pressure chronic ulcer of other part of left foot with unspecified severity (principal); L97.329 Non-pressure chronic ulcer of left ankle with unspecified severity; F11.10 Opioid abuse, uncomplicated; I10 Essential (primary) hypertension; J44.9 Chronic obstructive pulmonary disease, unspecified; F17.200 Nicotine dependence, unspecified, uncomplicated; Z23 Encounter for immunization; Z88.6 Allergy status to analgesic agent; Z88.5 Allergy status to narcotic agent
CPT/HCPCS: 99284; 90471; 96375; 96365; 36415; 87040; 87070; 87205; 83605; 85025; 85652; 86140; 87077; 80053; 87186; 80307; 87150 ×26; 73610; 73630; 90715; J1885; J3370